=== PATIENT | male | born 1955 | race Caucasian/White ===

== ENCOUNTER 2024-04-02 07:30 | Day surgery (SDC) | payer MEDICARE, OTHER ==
[2024-04-02] MEDS: Lactated Ringers 1,000 ML IV SCH (07:58)
[2024-04-02] MEDS ORDERED: fentaNYL 100 MCG/2 ML SDV ONE (09:13)
[2024-04-02] MEDS ORDERED: Propofol 200 MG/20 ML SDV ONE (09:13)
[2024-04-02 10:52] VITALS: BP 100/61; PULSE 45
== END 2024-04-02 11:42 | disposition home or self-care (01) ==
LOC: VM.SDS 07:30
PROVIDERS: ATTEND Family Medicine
DX: D12.6 Benign neoplasm of colon, unspecified (principal); K57.30 Diverticulosis of large intestine without perforation or abscess without bleeding; E78.5 Hyperlipidemia, unspecified; Z79.899 Other long term (current) drug therapy
CPT/HCPCS: 00811; 88305; J2704; J3010; J7120